=== PATIENT | male | born 1965 | race Two or more races ===

== ENCOUNTER 2017-04-30 10:52 | Observation (INO) | payer SELFPAY ==
[2017-04-30] MEDS ORDERED: FAMOTIDINE 20 MG/NACL 50 ML IV ONE (11:41)
[2017-04-30] MEDS ORDERED: NS 500 ML IV ONE (11:41)
[2017-04-30] MEDS ORDERED: ONDANSETRON 4 MG/2 ML VIAL IVP ONE (11:41)
[2017-04-30] MEDS ORDERED: PANTOPRAZOLE SODIUM 80 MG in NS 100 ML IV ONE (11:42)
[2017-04-30 11:48] LABS: % IMMATURE GRANULYOCYTES 0.3 % (0.0-1.1); ABSOLUTE IMMATURE GRANULOCYTES 0.02 10^3/uL (0.00-0.10); ADD DIFF? NO; ADD MORPH? NO; ADD SCAN? NO; ATYPICAL LYMPHOCYTE FLAG 20 (0-99); FRAGMENT RBC FLAG 0 (0-99); HEMOGLOBIN 15.3 g/dL (13.7-17.5); LEFT SHIFT FLG 0 (0-99); LIPEMIA HEMOLYSIS FLAG 90 (0-99); MEAN CELL HEMOGLOBIN 31.9 pg (27.9-34.1); MEAN CELL HEMOGLOBIN CONCENTR. 35.6 g/dL (32.4-36.7); MEAN CELL VOLUME 89.6 fL (81.5-99.8); MEAN PLATELET VOLUME 10.4 fL (8.7-11.7); PLATELET CLUMPS FLAG 0 (0-99); PLATELET COUNT 267 10^3/uL (150-400); RED CELL DISTRIBUTION WIDTH 12.9 % (11.5-15.2)
[2017-04-30 11:54] LABS: ALANINE AMINOTRANSFERASE 80 IU/L (21-72); ALBUMIN 4.4 g/dL (3.5-5.0); ALKALINE PHOSPHATASE 85 IU/L (38-126); ANION GAP 12 mEq/L (8-16); ASPARTATE AMINOTRANSFERASE 39 IU/L (17-59); BILIRUBIN,TOTAL 0.9 mg/dL (0.1-1.4); BILIRUBIN-CONJUGATED 0.2 mg/dL (0.0-0.5); BILIRUBIN-UNCONJUGATED 0.7 mg/dL (0.0-1.1); CALCIUM 9.6 mg/dL (8.5-10.4); CARBON DIOXIDE 21 mEq/l (22-31); CHLORIDE 107 mEq/L (97-110); CREATININE 0.8 mg/dL (0.7-1.3); GLOMERULAR FILTRATION RATE > 60; GLUCOSE 101 mg/dL (70-100); SODIUM 140 mEq/L (134-144); TOTAL PROTEIN 7.5 g/dL (6.3-8.2)
[2017-04-30 12:02] LABS: APTT 28.6 SEC (23.0-38.0); INR 1.05 (0.83-1.16); PROTIME(PATIENT) 13.6 SEC (12.0-15.0)
[2017-04-30] MEDS ORDERED: IOPAMIDOL (ISOVUE-300) 100 ML BTL ONE (12:13)
--- NOTE | 2017-04-30 13:14 | EDPHY ---
H & P Time Seen by Provider: 04/30/17 11:41 HPI/ROS: HPI Rectal bleeding. 52-year-old male by private vehicle from the office of his primary care physician Dr. Concepcion. Patient reports that last night after dinner he developed some upper abdominal discomfort. He then reports that 11:30 p.m. he had a bowel movement which consisted mostly of meredith bright red blood mixed with a little bit of stool. He reports that he then went to sleep and was up through most of the night with abdominal discomfort which she described as a lot of bloating and gas as well as epigastric burning. Then this morning he had 2 more episodes of stool which she describes as black the 2nd episode being mixed with some bright red blood. He went to see his primary care physician and was sent here. He is not on anticoagulation medications. No history of coagulopathy. He does not take NSAIDs on a regular basis. ROS: Constitutional: No fever, no chills. No weakness. Eyes: No discharge. No changes in vision. ENT: No sore throat. No nasal congestion or rhinorrhea. Respiratory: No cough. No shortness of breath. Cardiac: No chest pain, no palpitations. Gastrointestinal: As above, no diarrhea. Genitourinary: No hematuria. No dysuria or increased frequency with urination. Musculoskeletal: No back pain. No neck pain. No myalgias or arthralgias. Skin: No rashes. Neurological: No headache. No focal weakness or altered sensation. Past medical history: Cholecystectomy, diverticulitis, appendectomy. Home medications include Naprosyn and Mucinex. Social history: Here by himself. Nonsmoker. He does not drink alcohol. Physical Exam: General Appearance: Alert, no distress. This patient is responding to questions appropriately and in full sentences. This patient appears well- hydrated and well-nourished. Eyes: Pupils equal and round no pallor or injection. No lid edema, erythema or injection. Respiratory: There are no retractions, lungs are clear to auscultation with good air movement bilaterally. Cardiovascular: Regular rate and rhythm. No murmur. Gastrointestinal: Abdomen is soft, mildly distended. He has some mild and vague left lower quadrant tenderness on palpation and mild epigastric tenderness on palpation, no masses, bowel sounds normal. No focal tenderness at McBurney's point. No Diane sign. Rectal exam: Some gross bright red blood mixed with a melenic like stool. Normal rectal tone. No active hemorrhage. Neurological: Motor sensory function is grossly intact. Cranial nerves are normal. Gait is normal. Skin: Warm and dry, no rashes. Musculoskeletal: Neck is supple and nontender. Extremities are symmetrical. All joints range without pain or impingement. Psychiatric: No agitation. No depression. Database: EKG: Imaging: CT scan of abdomen and pelvis with IV contrast: Significant for diverticulosis. No diverticulitis. Status post cholecystectomy. Left renal cyst noted. CT scan otherwise unremarkable. Results were discussed with staff radiologist Dr. Duc Rodriguez. Procedures: Emergency department course: IV placed. He was placed on a monitor. Vital signs reviewed and are normal. Appropriate blood work sent. He was given 80 mg of IV Protonix. 20 mg of IV Pepcid. 2:30 p.m., patient re-evaluated. Resting comfortably at this time. No active rectal bleeding at this time. Results of his emergency department workup and plan for admission discussed with him. Vital signs reviewed and are normal. He denies any significant pain at this time. He endorses admission. 2:40 p.m., spoke with hospitalist, Dr. Brianda Perez, she accepts this patient for admission. Gastroenterology paged at this time as well for consultation. 2:50 p.m., spoke with , emergency room clerk. She will see this patient on admission. Plan is to do upper lower scopes tomorrow morning. 2:55 p.m., spoke with Dr. Perez. She is aware the patient is to be scoped tomorrow in prep tonight for this. Patient admitted in stable condition to the hospitalist service. Differential Diagnosis: The differential diagnosis on this patient includes but is not limited to peptic ulcer disease, diverticulosis, bleeding esophageal varices. This represents a partial list of diagnoses considered. These considerations are based on history, physical exam, past history, reassessment and diagnostic testing. Smoking Status: Current every day smoker Constitutional: Initial Vital Signs Temperature (C) 36.9 C 04/30/17 10:56 Heart Rate 62 04/30/17 10:56 Respiratory Rate 16 04/30/17 10:56 Blood Pressure 152/93 H 04/30/17 10:56 O2 Sat (%) 97 04/30/17 10:56 O2 Delivery Mode Room Air Allergies/Adverse Reactions: No Known Allergies Allergy (Verified 04/30/17 15:31) Home Medications: Medication Instructions Recorded Naproxen Sodium [Aleve 220 MG (*)] 220 mg PO BID PRN 04/30/17 guaiFENesin [Mucinex 600 MG (*)] 600 mg PO BID PRN 04/30/17 guaiFENesin/DEXTROMETHORPHAN 10 ml PO Q4 PRN 04/30/17 [Robitussin Dm Oral Liquid (*)] Medical Decision Making - Data Points Laboratory Results: Laboratory Results 04/30/17 11:20 04/30/17 11:20 Medications Given: Pantoprazole Sodium 40 mg/ (Sodium Chloride) 100 mls @ 200 mls/hr IV BID CHANDAN Stop: 10/27/17 15:59 Last Admin: 04/30/17 21:51 Dose: 100 mls Sodium Chloride (Ns) 1,000 mls @ 100 mls/hr IV CONT CHANDAN Stop: 10/27/17 15:59 Last Admin: 04/30/17 17:28 Dose: 1,000 mls Discontinued Medications Sodium Chloride (Ns) 500 mls @ 0 mls/hr IV EDNOW ONE; Wide Open PRN Reason: Protocol Stop: 04/30/17 11:42 Last Admin: 04/30/17 11:58 Dose: 500 mls Famotidine/Sodium Chloride (Pepcid 20 Mg (Premix)) 50 mls @ 200 mls/hr IV EDNOW ONE Stop: 04/30/17 11:55 Last Admin: 04/30/17 12:00 Dose: 50 mls Pantoprazole Sodium 80 mg/ (Sodium Chloride) 100 mls @ 200 mls/hr IV EDNOW ONE Stop: 04/30/17 12:11 Last Admin: 04/30/17 11:58 Dose: 100 mls Ondansetron HCl (Zofran) 4 mg IVP EDNOW ONE Stop: 04/30/17 11:42 Last Admin: 04/30/17 11:58 Dose: 4 mg Polyethylene Glycol/Electrolytes (Gavilyte - G) 4,000 ml PO ONCE ONE Stop: 04/30/17 15:53 Last Admin: 04/30/17 17:42 Dose: 4,000 ml Departure - Departure Disposition: [facility] Inpatient Acute Clinical Impression: Gastrointestinal bleeding
[2017-04-30] MEDS ORDERED: PEG 3350/NA SULF,BICARB,CL/KCL (GAVILYTE-G) 4000 ML BTL PO ONE (15:52)
[2017-04-30] MEDS ORDERED: ACETAMINOPHEN 325 MG TAB PO PRN (15:54)
[2017-04-30] MEDS ORDERED: ONDANSETRON 4 MG/2 ML VIAL IVP PRN (15:54)
[2017-04-30] MEDS ORDERED: PROMETHAZINE HCL 25 MG/ML INJ IVP PRN (15:54)
[2017-04-30] MEDS ORDERED: NS 1,000 ML IV SCH (16:00)
--- NOTE | 2017-04-30 16:31 | GHP ---
[f rep st] HISTORY AND PHYSICAL DATE OF ADMISSION: 04/30/2017 CHIEF COMPLAINT: Bright red blood per rectum. HISTORY: The patient is a 52-year-old male who last night at 11 p.m. had an episode of bright red bl ood per rectum. He had some associated upper abdominal discomfort and epigastric burning. This morn ing he has had ongoing bleeding, but now it is more black mixed in with bright red blood. He has had some nausea, but no vomiting. He has been recently taking NSAIDs in the form of daily Aleve for katelynn e tooth pain. He also has a history of frequent GERD. His last colonoscopy was 2003. He denies any weight loss. PAST MEDICAL HISTORY: Diverticulitis, status post sigmoid colectomy. PAST SURGICAL HISTORY: Appendectomy, cholecystectomy, bilateral inguinal hernia repair. MEDICATIONS: Please see computer record for full detailed list. ALLERGIES: No known drug allergies. SOCIAL HISTORY: Smokes 5-7 cigarettes per day. No current alcohol. He quit completely 3 years ago. Prior to that he was a heavy drinker for 25 years. He lives with his . He is currently not em ployed but has worked in cleaning in the past. REVIEW OF SYSTEMS: Complete review of systems obtained. Review of systems is negative regarding con stitutional, HEENT, GI, pulmonary, cardiovascular, , hematology, skin, muscular, endocrine, psych s ave for positives as in the HPI. FAMILY HISTORY: Father also had a stomach ulcer and congestive heart failure and is . There is no family history of colon cancer. PHYSICAL EXAMINATION: GENERAL: Well-developed, well-nourished male, in no acute distress. VITAL SI GNS: Temperature is 36.9, pulse 60, blood pressure 125/79, saturating 97% on room air. HEENT: Norm al conjunctivae. Pupils equal and react to light. ENT: Normal ears and nose. Hearing intact. Nor mal lips and teeth. Oropharynx moist. NECK: Trachea midline. No thyromegaly. CHEST: Normal effo rt. Lungs clear to auscultation bilaterally. CARDIOVASCULAR: Regular rhythm. No murmur. No lower extremity edema. ABDOMEN: Soft, nontender. No hepatosplenomegaly. SKIN: Warm and dry, intact. No rash. MUSCULOSKELETAL: No cyanosis or clubbing. Strength 5/5 upper and lower extremities. NEUR OLOGIC: Cranial nerves intact. Normal sensation to light touch. PSYCH: Alert and oriented x3. No rmal mood affect. Normal judgment and insight. Normal memory. LABORATORY: White count 5.8, hematocrit 43.0, platelets 267. Sodium 140, potassium 4.0, chloride 10 7, bicarb 21, BUN 16, creatinine 0.8, glucose 101. LFTs are negative. INR is 1.05. CT scan of the abdomen and pelvis shows diverticulosis. Stool is heme positive. ASSESSMENT/PLAN: 1. Gastrointestinal bleed. I suspect upper given his presentation of epigastric pain and history of recent NSAID use and gastroesophageal reflux disease symptoms. He does have a history of alcohol us e, although none current. At this point, his bleeding does not seem to be rapid enough for a varicea l bleed. However, if he looks to be rapidly dropping his H and H or with significant GI bleeding her e, I would start octreotide and let GI know that we may need endoscopy more urgently. At this point gastroenterology is planning for EGD and colonoscopy in the morning. I will start him on a GI prep. Will empirically place him on IV proton pump inhibitor and follow serial H and H's. I doubt infecti ous diarrhea as the source of his presentation but will send a GI panel PCR. 2. Severe diverticulosis. This could also be a bleeding source. He has extensive diverticulosis se en on his CAT scan and has also previously required a sigmoid resection for diverticulitis and all of this signifies he does have quite severe diverticular disease. 3. Tobacco dependence. Will provide a nicotine patch. CODE STATUS: Full. ADMISSION STATUS: Will admit to observation. LENGTH OF STAY: Will be determined by clinical course. DVT PROPHYLAXIS: He is moderate risk. Will place him on SCDs only due to GI bleeding. /[id number]/MODL
[2017-04-30] MEDS: PANTOPRAZOLE SODIUM 40 MG in NS 100 ML IV SCH ×2 (17:28→21:51)
[2017-04-30 17:49] LABS: HEMATOCRIT 41.1 % (40.0-51.0); HEMOGLOBIN 14.3 g/dL (13.7-17.5)
--- NOTE | 2017-04-30 19:37 | GCON ---
[f rep st] CONSULTATION DATE OF CONSULTATION: 04/30/2017 CHIEF COMPLAINT: GI bleed. HISTORY OF PRESENT ILLNESS: I am asked to see this patient in consultation by Dr. Perez for chief co mplaint of GI bleeding. The patient is a pleasant 52-year-old who had onset of bright red blood last night, several episodes, and then this morning noted some dark melenic stools. With this he has had some vague abdominal pain, mostly epigastric to the left upper quadrant. Nausea, but no vomiting. No hematemesis. He does have occasional GERD symptoms. Generally has regular bowel movements but has had fewer bowel movements the last few days. No diarrhea or fevers or chills. He takes Aleve occasionally but did not take any Pepto-Bismol. No family history for colon cancer or colitis. He did have a colonoscopy 10 years ago which found di verticulitis and did require surgery. He had an upper endoscopy a few years ago but does not remembe r the results of that. ALLERGIES: No known allergies. HOME MEDICATIONS: He reports Naprosyn and Mucinex. PAST MEDICAL HISTORY: Notable for diverticulitis requiring surgery, post cholecystectomy. SOCIAL HISTORY: He smokes, does not drink alcohol. FAMILY HISTORY: Negative for colon cancer or colon polyps although his father did have a gastric ulc er. REVIEW OF SYSTEMS: I performed a complete review of systems which is negative except for the pertine nt positives and negatives noted above in the history of present illness. PHYSICAL EXAMINATION: VITAL SIGNS: Temperature is 36.9, BP 114/65, pulse 60. GENERAL: He is alert and oriented. EYES: No scleral icterus. HEENT: No oral lesions. CARDIOVASCULAR: Regular rate a nd rhythm. CHEST: Clear to auscultation. GI: Positive bowel sounds. Slightly obese abdomen that is soft. No rebound. NEUROLOGIC: Nonfocal. SKIN: No rashes. LABORATORY DATA: BUN and creatinine are 16 and 0.8, hematocrit is normal at 43 with a hemoglobin of 15.3. CT scan of the abdomen shows diverticulosis, but no diverticulitis or ischemia. ASSESSMENT: Patient with gastrointestinal bleed with both bright red blood and darker melenic stools , so site is less clear, although I am most suspicious for lower GI bleeding, likely diverticulosis, or could have a right-sided colonic lesion. However, would also give consideration to an upper GI b leed although it would be unusual for this to present with bright red blood and be hemodynamically st able with a normal hematocrit. Having said that though, I would recommend both an upper and lower en doscopy for evaluation. PLAN: Recommend Colyte prep tonight and will plan for upper and lower endoscopy tomorrow for angel sparks. However, if he should have evidence of more significant bleeding, particularly if concerns for significant upper GI bleeding, then could give consideration to an urgent endoscopy this evening. Thank you for this consult. /[id number]/MODL
[2017-05-01 00:41] LABS: HEMATOCRIT 38.4 % (40.0-51.0); HEMOGLOBIN 13.1 g/dL (13.7-17.5)
[2017-05-01 06:46] LABS: % IMMATURE GRANULYOCYTES 0.2 % (0.0-1.1); ABSOLUTE IMMATURE GRANULOCYTES 0.01 10^3/uL (0.00-0.10); ADD DIFF? NO; ADD MORPH? NO; ADD SCAN? NO; ATYPICAL LYMPHOCYTE FLAG 10 (0-99); FRAGMENT RBC FLAG 0 (0-99); HEMATOCRIT 38.9 % (40.0-51.0); HEMOGLOBIN 13.5 g/dL (13.7-17.5); LEFT SHIFT FLG 0 (0-99); LIPEMIA HEMOLYSIS FLAG 90 (0-99); MEAN CELL HEMOGLOBIN 31.5 pg (27.9-34.1); MEAN CELL HEMOGLOBIN CONCENTR. 34.7 g/dL (32.4-36.7); MEAN CELL VOLUME 90.7 fL (81.5-99.8); MEAN PLATELET VOLUME 10.1 fL (8.7-11.7); PLATELET CLUMPS FLAG 0 (0-99); PLATELET COUNT 236 10^3/uL (150-400); RED BLOOD CELL COUNT 4.29 10^6/uL (4.40-6.38); RED CELL DISTRIBUTION WIDTH 13.1 % (11.5-15.2)
[2017-05-01 06:58] LABS: INR 1.12 (0.83-1.16); PROTIME(PATIENT) 14.3 SEC (12.0-15.0)
[2017-05-01 07:13] LABS: ALANINE AMINOTRANSFERASE 74 IU/L (21-72); ALBUMIN 3.5 g/dL (3.5-5.0); ALKALINE PHOSPHATASE 70 IU/L (38-126); ANION GAP 9 mEq/L (8-16); ASPARTATE AMINOTRANSFERASE 33 IU/L (17-59); BILIRUBIN,TOTAL 0.8 mg/dL (0.1-1.4); BILIRUBIN-CONJUGATED 0.2 mg/dL (0.0-0.5); BILIRUBIN-UNCONJUGATED 0.6 mg/dL (0.0-1.1); CALCIUM 8.8 mg/dL (8.5-10.4); CARBON DIOXIDE 20 mEq/l (22-31); CHLORIDE 111 mEq/L (97-110); CREATININE 0.8 mg/dL (0.7-1.3); GLOMERULAR FILTRATION RATE > 60; GLUCOSE 94 mg/dL (70-100); POTASSIUM 4.3 mEq/L (3.5-5.2); SODIUM 140 mEq/L (134-144); TOTAL PROTEIN 6.1 g/dL (6.3-8.2)
[2017-05-01] MEDS: PANTOPRAZOLE SODIUM 40 MG in NS 100 ML IV SCH (08:10)
[2017-05-01] MEDS ORDERED: NICOTINE 7 MG/24 HR PATCH TD SCH (09:00)
[2017-05-01] MEDS ORDERED: LR 1,000 ML IV ONE (09:12)
[2017-05-01] MEDS ORDERED: MIDAZOLAM 2 MG/2 ML VIAL ONE (09:47)
[2017-05-01] MEDS ORDERED: NALOXONE HCL 0.4 MG/ML INJ IVP PRN (09:49)
[2017-05-01] MEDS ORDERED: LR 500 ML IV PRN (09:49)
[2017-05-01] MEDS ORDERED: MEPERIDINE 25 MG/ML SYR IVP PRN (09:49)
[2017-05-01] MEDS ORDERED: ALBUTEROL 3 ML DEYVIAL IH PRN (09:49)
[2017-05-01] MEDS ORDERED: DEXAMETHASONE 4 MG/ML VIAL IVP PRN (09:49)
[2017-05-01] MEDS ORDERED: fentaNYL 100 MCG/2 ML INJ IVP PRN (09:49)
--- NOTE | 2017-05-01 09:52 | PDANEPAE ---
ANE Past Medical History - Pulmonary History Hx Oxygen in Use at Home: No Hx Sleep Apnea: No Sleep Apnea Screening Result - Last Documented: Negative - Endocrine History Hx Diabetes: No ANE Review of Systems Review of Systems: ANE Patient History - Allergies Allergies/Adverse Reactions: No Known Allergies Allergy (Verified 04/30/17 15:31) - Home Medications Home Medications: Naproxen Sodium [Aleve 220 MG (*)] 220 mg PO BID PRN 04/30/17 [Last Taken ] guaiFENesin [Mucinex 600 MG (*)] 600 mg PO BID PRN 04/30/17 [Last Taken 04/26/17 ] guaiFENesin/DEXTROMETHORPHAN [Robitussin Dm Oral Liquid (*)] 10 ml PO Q4 PRN [Last Taken 04/26/17] - NPO status NPO Since - Liquids (Date): 05/01/17 NPO Since - Liquids (Time): 00:00 NPO Since - Solids (Date): 05/01/17 NPO Since - Solids (Time): 00:00 - Smoking Hx Smoking Status: Current every day smoker ANE Labs/Vital Signs - Labs Result Diagrams: 05/01/17 06:37 05/01/17 06:37 - Vital Signs Blood Pressure: 131/79 Heart Rate: 61 Respiratory Rate: 12 O2 Sat (%): 94 Height: 165.1 cm Weight: 79.832 kg ANE Physical Exam - Airway Mallampati Score: Class 2 Mouth exam: poor dentition - Pulmonary Pulmonary: no respiratory distress, no rales or rhonchi, clear to auscultation - Cardiovascular Cardiovascular: regular rate and rhythym, no murmur, rub, or gallop, pulses symmetric bilaterally - ASA Status ASA Status: III ANE Anesthesia Plan Anesthesia Plan: GA with mask
--- NOTE | 2017-05-01 10:23 | GIREPORT ---
[facility] Surgical Services - Endoscopy Department Patient Name: Sahil Conner Procedure Date: 05/01/2017 9:57 AM Patient Type: Inpatient Attending MD/ ER Physician: Cecilia Boykin MD Procedure: Upper GI endoscopy Indications: Melena Providers: Cecilia Boykin MD Medicines: Monitored Anesthesia Care Complications: No immediate complications. Description of Procedure: After obtaining informed consent, the endoscope was passed under direct vision. Throughout the procedure, the patient's blood pressure, pulse, and oxygen saturations were monitored continuous ly. The Endoscope was introduced through the mouth, and advanced to the second part of duodenum. The upper GI endoscopy was accomplished without difficulty. The patient tolerated the procedure well . Findings: The esophagus was normal. Patchy moderate inflammation characterized by congestion (edema), erosions and granularity was f ound in the gastric fundus and in the gastric antrum. Biopsies were taken with a cold forceps for histology. Estimated blood loss was minimal. The examined duodenum was normal. Estimated Blood Loss: Estimated blood loss was minimal. Post Op Diagnosis: - Normal esophagus. - Gastritis. Biopsied. No active bleeding over all low risk for serious bleeding. - Normal examined duodenum. Recommendation: - Await pathology results. - Use Protonix (pantoprazole) 40 mg PO daily for 12 weeks. - Colonoscopy today. - Avoid NSAIDS. Attending Participation: I personally performed the entire procedure. Cecilia Boykin MD Cecilia Boykin MD 05/01/2017 10:23:07 AM Number of Addenda: 0 Note Initiated On: 05/01/2017 9:57 AM [email or web address]
--- NOTE | 2017-05-01 10:29 | GIREPORT ---
[facility] Surgical Services - Endoscopy Department Patient Name: Sahil Conner Procedure Date: 05/01/2017 10:02 AM Patient Type: Inpatient Attending MD/ ER Physician: Cecilia Boykin MD Procedure: Colonoscopy Indications: Hematochezia Providers: Cecilia Boykin MD Medicines: Monitored Anesthesia Care Complications: No immediate complications. Description of Procedure: After obtaining informed consent, the scope was passed under direct vision. Throughout the proce dure, the patient's blood pressure, pulse, and oxygen saturations were monitored continuously. The Colonoscope with irrigation channel was introduced through the anus and advanced to the cecum, identified by appendiceal orifice and ileocecal valve. The colonoscopy was performed without difficulty. The patient tolerated the procedure well. The quality of the bowel preparation was g ood. The ileocecal valve, appendiceal orifice, and rectum were photographed. Findings: The perianal and digital rectal examinations were normal. A few diverticula were found in the sigmoid colon. A 4 mm polyp was found in the descending colon. The polyp was sessile. The polyp was removed wit h a cold biopsy forceps. Resection and retrieval were complete. Estimated blood loss was minimal. Hemorrhoids were found during retroflexion. Estimated Blood Loss: Estimated blood loss was minimal. Post Op Diagnosis: - Diverticulosis in the sigmoid colon. - No active bleeding no old blood seen. - One 4 mm polyp in the descending colon, removed with a cold biopsy forceps. Resected and retri eved. - Hemorrhoids. Recommendation: - Await pathology results. - Repeat colonoscopy for surveillance based on pathology results. If TA then repeat in 5 years otherwsie 10 years. - [facility] patient to [facility]. - Will sign of for now. Attending Participation: I personally performed the entire procedure. Cecilia Boykin MD Cecilia Boykin MD 05/01/2017 10:28:53 AM Number of Addenda: 0 Note Initiated On: 05/01/2017 10:02 AM Total Procedure Duration Time 0 hours 8 minutes 25 seconds [email or web address]
--- NOTE | 2017-05-01 10:41 | POSTANESTH ---
Post Anesthetic Evaluation Cardiovascular Status: Normal, Stable Respiratory Status: Normal, Stable Level of Consciousness/Mental Status: Can Participate in Eval Pain Control: Adequate, Prn Tx Ordered Nausea/Vomiting Control: Adequate, Prn Tx Ordered Complications Possibly Related to Anesthesia: None Noted
[2017-05-01 10:42] VITALS: RESP 18
[2017-05-01 11:30] VITALS: BP 125/77; PULSE 70; TEMP 98.1; O2SAT 94
--- NOTE | 2017-05-01 12:09 | ASMTCMCOM ---
CM Note CM Note Notes: Chart reviewed. Met with patient and family to discuss discharge poc, patient lives independent with good support. No needs identified at this time. CM available to follow should needs arise. Date Signed: 05/01/2017 12:09 PM Electronically Signed By:Anahy Briones RN
--- NOTE | 2017-05-01 19:27 | GDS ---
[f rep st] DISCHARGE SUMMARY DISCHARGE DIAGNOSES: 1. Diverticulosis. 2. Hemorrhoids. 3. Descending colon polyp. CONSULTATIONS: Gastroenterology. STUDIES AND PROCEDURES DONE: 1. EGD. 2. Colonoscopy. 3. CT of the abdomen. PHYSICAL EXAM: GENERAL: The patient is alert. VITAL SIGNS: Afebrile at 36.7, pulse is 70, respira tory rate is 18, blood pressure is 125/77. He is saturating 94% on room air. I have seen and evalua lizbeth the patient on the day of discharge. HOSPITAL COURSE: The patient is a 52-year-old male who presented to the emergency room with complain ts of bloody stool. He was evaluated with a CT scan noting diverticulosis without any evidence of di verticulitis. He did receive a consultation from Dr. Boykin of Gastroenterology. A colonoscopy a s well as EGD were performed during this hospital course. They were noted for a normal esophagus wit h gastritis, and normal duodenum. They recommended the patient continue Protonix on a daily basis, a nd avoid NSAIDs. His colonoscopy demonstrated diverticulosis as well as hemorrhoids, and a 4 mm desc ending colon polyp. This was biopsied and has been sent for Pathology. The patient has no further s igns of bleeding. He is hemodynamically stable. He is tolerating a regular diet and is eager to be discharged home. DISCHARGE INSTRUCTIONS: He will follow up in the outpatient setting with [facility] as well as [facility]ology [facility] the [facility]. He has been instructed to avoid NSAIDs in the outpatient setting. He has been provided a prescription for Protonix at the time of disposition. I have not adjusted any of the patient's other previously prescribed home medications to the best of my knowledge. I reviewed the patient's disposition with Dr. Boykin. /[id number]/MODL
[2017-05-02] MEDS ORDERED: PANTOPRAZOLE SODIUM 40 MG TAB PO SCH (09:00)
== END 2017-05-01 14:45 | disposition home or self-care (01) ==
LOC: INTOOBSV 14:44 → F3E 16:42
PROVIDERS: ADMIT Internal Medicine; ATTEND Internal Medicine
DX: K57.90 Diverticulosis of intestine, part unspecified, without perforation or abscess without bleeding (principal); K64.9 Unspecified hemorrhoids; D12.4 Benign neoplasm of descending colon
CPT/HCPCS: 96365; G0378; J2250; J2405; Q9967